=== PATIENT | female | born 1990 | race Caucasian/White ===

== ENCOUNTER 2016-07-23 17:19 | Observation (INO) | payer OTHER ==
[2016-07-23 18:48] LABS: HEMOGLOBIN 13.4 gm/dl (12.3-15.3); RED BLOOD COUNT 4.44 M/UL (4.00-5.10); WHITE BLOOD COUNT 11.1 K/UL (4.5-11.0)
[2016-07-23 19:11] LABS: BUN/CREATININE RATIO 18 (0-10)
[2016-12-07] MEDS ORDERED: NORCO 5-325 TA1 EACH PO (13:38)
[2016-12-07] MEDS ORDERED: IBUPROFEN600 MG PO (13:39)
[2016-12-07] MEDS ORDERED: DOCUSATE SODIU100 MG PO (13:41)
== END 2016-07-24 09:39 | disposition home or self-care (01) ==
LOC: GENOP 17:19 → OB 18:15
PROVIDERS: ADMIT Obstetrics & Gynecology
DX: O21.9 Vomiting of pregnancy, unspecified (principal); R19.7 Diarrhea, unspecified; Z79.899 Other long term (current) drug therapy
CPT/HCPCS: 36415; 80048; 81001; 85025; 87086; 96360; 96361; 96374; G0378; J2550; J7050; J7120

== ENCOUNTER 2016-08-18 01:06 | Observation (INO) | payer OTHER ==
[2016-12-07] MEDS ORDERED: NORCO 5-325 TA1 EACH PO (13:38)
[2016-12-07] MEDS ORDERED: IBUPROFEN600 MG PO (13:39)
[2016-12-07] MEDS ORDERED: DOCUSATE SODIU100 MG PO (13:41)
== END 2016-08-18 09:18 | disposition home or self-care (01) ==
LOC: GENOP 01:06 → OB 03:41
PROVIDERS: ADMIT Obstetrics & Gynecology
DX: O26.852 Spotting complicating pregnancy, second trimester (principal); O99.332 Smoking (tobacco) complicating pregnancy, second trimester; F17.210 Nicotine dependence, cigarettes, uncomplicated; Z3A.24 24 weeks gestation of pregnancy
CPT/HCPCS: 81001; 96360; 96361; 96372; G0378; J3105; J7120

== ENCOUNTER 2016-09-19 16:28 | Outpatient (CLI) | payer OTHER ==
[2016-12-07] MEDS ORDERED: NORCO 5-325 TA1 EACH PO (13:38)
[2016-12-07] MEDS ORDERED: IBUPROFEN600 MG PO (13:39)
[2016-12-07] MEDS ORDERED: DOCUSATE SODIU100 MG PO (13:41)
== END 2016-09-19 17:47 | disposition home or self-care (01) ==
LOC: GENOP 16:28
DX: O46.8X3 Other antepartum hemorrhage, third trimester (principal); Z3A.33 33 weeks gestation of pregnancy
CPT/HCPCS: 59025